=== PATIENT | male | born 1995 | race Caucasian/White ===

== ENCOUNTER 2023-11-16 10:08 | Outpatient (CLI) | payer MEDICAID, SELFPAY ==
[2023-11-16 12:24] LABS: HGB 13.4 g/dL (13.5-17.5); MCHC 31.9 % (32.0-36.0); Platelet Count 213 10^3/uL (130-400); RBC 6.59 10^6/uL (4.36-5.78); RDW 17.5 % (11.8-14.1); RDW-SD 34.4 fL; WBC 5.35 10^3/uL (4.4-10.8)
[2023-11-16 12:46] LABS: ALT 25 U/L (16-63); AST 19 U/L (15-37); Albumin 4.4 g/dL (3.4-5.0); Alkaline Phosphatase 38 U/L (46-116); Anion Gap 8.2 mmol/L (3-11); BUN 11 mg/dL (7-18); Bilirubin, Total 1.02 mg/dL (0.2-1.0); CO2 27.8 mmol/L (21.0-32.0); CREATININE 0.8 mg/dL (0.70-1.30); Calcium 9.4 mg/dL (8.5-10.1); Calculated LDL 106 mg/dL (<100); Chloride 105 mmol/L (98-107); Cholesterol 169 mg/dL (<200); Estimated GFR 123.63 (mL/min/1.73m2); Glucose 109 mg/dL (74-106); HDL Cholesterol 58 mg/dL (40-60); Potassium 4.5 mmol/L (3.5-5.1); Sodium 141 mmol/L (136-145); TSH (W/Ref FT4) 1.88 uIU/mL (0.36-3.74); Total Protein 7.4 g/dL (6.4-8.2); Triglyceride 25 mg/dL (<150)
[2023-11-16 12:51] LABS: MCV 64 fL (80-95)
[2023-11-16 12:52] LABS: MCH 20.3 pg (27.0-33.0)
== END 2023-11-16 10:09 | disposition home or self-care (01) ==
LOC: LOS 10:08
PROVIDERS: PCP Nurse Practitioner Family; Referring Provider Nurse Practitioner Family; Visit Provider Nurse Practitioner Family
DX: Z00.00 Encounter for general adult medical examination without abnormal findings (principal); Z23 Encounter for immunization
CPT/HCPCS: 36415; 80053; 80061; 85027; 84443

== ENCOUNTER 2023-12-25 01:55 | Outpatient (CLI) | payer MEDICAID, SELFPAY ==
[2023-12-25 09:07] LABS: Abs Immature Grans 0.02 10^3/uL (0.0-0.06); Absolute Basophil Count 0.03 10^3/uL (0.0-0.2); Absolute Lymphocyte Count 1.69 10^3/uL (1.2-3.4); Absolute Monocyte Count 0.49 10^3/uL (0.1-0.8); Absolute Neutrophil Count 3.79 10^3/uL (1.2-6.7); Basophils % 0.5 %; Eosinophils % 1.6 %; HCT 41.9 % (40.0-50.0); HGB 13.4 g/dL (13.5-17.5); Immature Grans % 0.3 %; Lymphocytes % 27.6 %; MCH 20.2 pg (27.0-33.0); MCV 63 fL (80-95); Platelet Count 211 10^3/uL (130-400); RBC 6.65 10^6/uL (4.36-5.78); RDW 16.3 % (11.8-14.1); RDW-SD 32.2 fL; WBC 6.12 10^3/uL (4.4-10.8)
[2023-12-25 09:39] LABS: Anisocytosis 1+; Diff Comment RBC Morph Reviewed
[2023-12-25 09:40] LABS: Hypochromasia 2+; Microcytosis 2+; Poikilocytes 1+
[2023-12-25 09:58] LABS: Iron 102 ug/dL (65-175); Total Iron Binding Capacity 229 ug/dL (250-450); Transferrin Sat 45 % (20-55)
[2023-12-25 10:23] LABS: Ferritin 268 ng/mL (26-388); Vitamin B12 647 pg/mL (193-986)
[2023-12-28 16:09] LABS: Hemoglobinopathy Interpretat (See Note)
== END 2023-12-25 01:56 | disposition home or self-care (01) ==
PROVIDERS: PCP Nurse Practitioner Family; Visit Provider Nurse Practitioner Family
DX: D50.9 Iron deficiency anemia, unspecified (principal)
CPT/HCPCS: 36415; 82607; 82728; 83020; 83540; 83550; 83655; 85025

== ENCOUNTER 2024-06-23 00:36 | Outpatient (CLI) | payer MEDICAID, SELFPAY ==
--- NOTE | 2024-06-23 | DI.MRI_ITS ---
Exam(s) MR LOWER JOINT RT WO EXAM: MR LOWER JOINT RT WO CLINICAL HISTORY: Acute pain of rt knee, M25.561 TECHNIQUE: Multiplanar multisequence MRI of the knee was performed. COMPARISON: No plain films of the knee available time this MRI interpretation. FINDINGS: EFFUSION: There is a small amount of increased joint fluid. There is also a small Blackwell cyst in th e medial popliteal fossa MARROW:There is no evidence of fracture, bone contusion, nor osteochondral defects.. There are no si gnificant osseous lesions. PATELLOFEMORAL COMPARTMENT: The quadriceps tendon is intact. The patellar ligament is intact. There is some mild irregularity in the retro patellar cartilage articular cartilage. This is over vero th facets, below the midline. There is also a small focus of subarticular bone edema in the posterio r patella over the medial facet and mild cartilage irregularity over this level. There is no adjacen t tear in the medial patellofemoral ligament. There is no true osteochondral defect at this level. There is no intraosseous signal to suggest recent patellar dislocation. There are no patellar retinac ular tears. CRUCIATE LIGAMENTS: The anterior cruciate ligament is intact.The posterior cruciate ligament is intac t. MEDIAL COMPARTMENT/MEDIAL MENISCUS: There are no tears of the medial meniscus evident.. There are no chondral defects, osteochondral defects, subarticular marrow edema, nor osteophytes evid ent. MEDIAL COLLATERAL LIGAMENT: Intact LATERAL COMPARTMENT/LATERAL MENISCUS: There is no evidence of lateral meniscal tear.There are no neftali dral defects, osteochondral defects, subarticular marrow edema, nor osteophytes evident. ILIOTIBIAL BAND: Intact LATERAL COLLATERAL LIGAMENT COMPLEX: The fibular collateral ligament is intact. The biceps femoris t endon is intact.Popliteus muscle and tendon are intact. IMPRESSION: 1. No evidence of meniscal tears nor collateral ligament tears. 2. No evidence of cruciate ligament tears 3. 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 There is also a small focus of subarticular signal abnormality in the posterior aspect o f the patella over the medial facet. There is, however, no formed osteochondral defect at this level . There is no evidence to suggest recent patellar dislocation. Quadriceps and patellar tendons are intact and there are no retinacular tears. 4. Small knee joint effusion. There is a in blackwell cyst in the medial popliteal fossa which measures 5 cm craniocaudal length. There are no loose intra-articular bodies. DATA REPOSITORY:
== END 2024-06-23 00:56 ==
LOC: DI 00:36
PROVIDERS: PCP Nurse Practitioner Family; Visit Provider Student in an Organized Health Care Education/Training Program
DX: M25.561 Pain in right knee (principal); R93.89 Abnormal findings on diagnostic imaging of other specified body structures
CPT/HCPCS: 73721